=== PATIENT | male | born 1980 | race Caucasian/White ===

== ENCOUNTER 2016-12-18 01:12 | Emergency (ER) | payer OTHER ==
[~2016-12-18] VITALS: Ht 177.8 cm; Wt 82.3 kg
[~2016-12-18 01:12] MED LIST: PROP60CA2 PO
[2016-12-18 01:18] VITALS: BP 131/94; PULSE 111; RESP 16; O2SAT 100
--- NOTE | 2016-12-18 02:38 | ED.REPORT ---
HPI-Overdose/Alcohol Toxicity Date of Service Dec 18, 2016 ED Provider: Saeed Das MD A 36 year old male with a history of PTSD and bipolar presents to the ED via EMS complaining of anxiety and feeling strange onset earlier after patient took THC pill. Associated symptoms include chest pain, pain around right eye, and tensing up of legs with accompanying pain described as shooting. The patient wants to sleep it off. He reports recently cutting back on his bipolar related oxycarbazepine by half a pill on his own initiative because he thought he did not need it. Nursing Notes Stated Complaint: ANXIETY Chief Complaint: Substance Abuse Nursing Notes Reviewed: Yes Allergies: Coded Allergies: No Known Allergies (Unverified Allergy, Unknown, 05/07/14) Scheduled Propranolol ER (Propranolol ER) 60 Mg Cap.sa.24h 20 MG PO DAILY General Time Seen by Provider: 02:07 Chief Complaint Other (anxiety) Hx Obtained From: Patient, EMS Arrived By: Ambulance Onset Occurred: 1 - 4 hours ago Symptom Duration: Since onset Severity: Current: Moderate Severity: Maximum: Moderate Recent Healthcare: No recent doctor visit Similar Sx Previous: No Past Medical History Past Medical History Hx of esophageal spasm Bipolar oxcarbazepine PTSD Reports: GERD, Hypertension Past Surgical History none reported. Family History Father had heart attack in his 40's Smoking History Never Smoker Social History Patient is who fought in [place]. Alcohol Use: Denies alcohol use Drug Use: THC (Has been using THC more than bipolar medication.) Ambulatory Status Independent Review of Systems Review of Systems Note: Pain around right eye. Cardiovascular: Reports: Chest pain Musculoskeletal: Reports: Extremity pain (tension and pain in legs) Psychiatric: Reports: Anxiety Complete sys rev & neg: except as marked. Physical Exam Initial Vital Signs Vital Signs (First) Date Time Temp Pulse Resp B/P Pulse Ox O2 Delivery O2 Flow Rate FiO2 12/18/16 01:18 36.6 111 16 131/94 100 Room Air Initial VS: Reviewed, Vital signs abnormal General/Constitutional: Awake, Alert, Cooperative Distress / Hydration: Positive: Distress moderate Appearance / Presentation: Positive: Pale Patient is disheveled Respiratory / Chest: Atraumatic, Breath sounds NL, Breath sounds = bilat, No respiratory distress, No rales, No rhonchi, No wheezing Cardiovascular: Heart rate NL, Regular rhythm, Heart sounds NL, No gallop, No murmurs, No rubs Abdomen: No guarding, No rebound Neurologic: Oriented X3, Speech NL Abnormal Mood/Affect: Positive: Flat affect Head / Eyes: Atraumatic, Normocephalic, PERRL, EOMI Skin: Color NL, Warm Patient is initially diaphoretic. Upper Extremity / MS: No swelling, No edema Lower Extremity / Pelvis / MS: No swelling, No edema Interpretation & Diagnostics Interpretation & Diagnostics: Urine Dipstick positive for Marijuana. Lab Results Interpretation Result Diagram: 12/18/16 0730 12/18/16 0730 Test 12/18/16 04:15 12/18/16 07:30 Hold Urine Received (Received) White Blood Count 8.0th/mm3 (3.8-10.1) Red Blood Count 5.86mil/mm3 (4.40-5.80) Hemoglobin 16.1g/dL (13.8-17.2) Hematocrit 47.7% (41.0-50.0) Mean Corpuscular Volume 81.4fL (81-100) Mean Corpuscular Hemoglobin 27.5pg (27.0-35.0) Mean Corpuscular Hemoglobin Concent 33.8% (32.0-37.0) Red Cell Distribution Width 14.3% (12.3-15.4) Platelet Count 186bil/L (150-400) Neutrophils (%) (Auto) 77.9% (40-74) Lymphocytes (%) (Auto) 15.5% (14-46) Monocytes (%) (Auto) 5.2% (4-12) Eosinophils (%) (Auto) 1.1% (0-5) Basophils (%) (Auto) 0.2% (0-3) Sodium Level 142mEq/L (134-144) Potassium Level 4.6mEq/L (3.5-5.2) Chloride Level 103mEq/L (97-108) Carbon Dioxide Level 22mmol/L (18-29) Blood Urea Nitrogen 9mg/dL (6-20) Creatinine 1.06mg/dL (0.76-1.27) Estimat Glomerular Filtration Rate 85mL/min (>59) Glucose Level 121mg/dL (60-99) Calcium Level 10.0mg/dL (8.5-10.1) Total Bilirubin 0.3mg/dL (0.0-1.2) Aspartate Amino Transf (AST/SGOT) 34U/L (0-50) Alanine Aminotransferase (ALT/SGPT) 29U/L (0-44) Alkaline Phosphatase 100U/L (25-150) Total Protein 7.8g/dL (6.4-8.4) Albumin 4.8g/dL (3.4-5.0) Thyroid Stimulating Hormone (TSH) 1.080uIU/mL (0.450-4.500) Hold Meier Top Tube Received (Received) ECG Interpretation ECG Interpretation: Rate is 109. Sinus tachycardia. Time: 01:30 Interpreted by: ED physician Re-Eval/Medical Decision Med Decision/Clinical Course 36-year-old male who has a history of PTSD associated with service. He has been reducing his prescription medications and increasing his marijuana use. He presents with an exacerbation of PTSD and appears quite withdrawn and somewhat high on marijuana. He was not treated specifically but allowed to rest in a safe environment and metabolize the drug. His care is being turned over at change of shift to Dr. White. Family has ongoing concerns with his progression and would like him evaluated by the FOREIGN EXCHANGE CLERK. Source of Hx: Old records, EMS Re-Evaluation/Progress : Time of Eval: 06:43 Re-Evaluation/Progress Note: Rechecked patient who is much better. He is walking around the room. Counseled Regarding: Diagnosis, Need for follow-up, When/why to return to ED Discharge & Departure Shift Change Sign-Out Patient Care Transferred: Yes Discussed Complaint(s): Yes Laboratory Evaluation: Back, reviewed by me Impression: Primary Impression: PTSD (post-traumatic stress disorder) Referrals: [facility]ACH[facility] (PCP) Care Transferred to: Dr. White Care Transferred at: 06:00 Ramiro Attestation Portions of this note were transcribed by Masoud Chung. I, Dr. Das personally performed the history, physical exam and medical decision-making; I reviewed and confirmed the accuracy of the information in the transcribed note. Signed by: Ramiro Velez, 12/18/2016 and 0732. copies to: Saeed Hooper MD Dec 18, 2016 02:38 Masoud Chung Dec 18, 2016 02:39
[2016-12-18 04:57] VITALS: BP 128/89; PULSE 99; RESP 17; O2SAT 100
[2016-12-18 08:11] LABS: BASOPHILS % (AUTO) 0.2 % (0-3); EOSINOPHILS % (AUTO) 1.1 % (0-5); MONOCYTES % (AUTO) 5.2 % (4-12); Mean Corpuscular Hemoglobin 27.5 pg (27.0-35.0); Mean Corpuscular Volume 81.4 fL (81-100); NEUTROPHILS % (AUTO) 77.9 % (40-74); Platelet Count 186 bil/L (150-400)
--- NOTE | 2016-12-18 10:57 | PCM.EDPN ---
ED Note Date of Service Dec 18, 2016 I assumed care of this patient from Dr. Das at approximately 6 AM. He is calm and cooperative when I examined him just now. I have reviewed the documentation as well. general scrap worker has seen him and provide him additional outpatient resources and Medicaid application. The patient would like to go home now. Assessment: PTSD exacerbation and acute situational disturbance. Plan: Discharged home with outpatient follow-up as arranged by social work. Ga White MD Dec 18, 2016 10:56
[2016-12-18 11:05] VITALS: BP 118/65; PULSE 78; O2SAT 98
== END 2016-12-18 11:06 | disposition home or self-care (01) ==
LOC: SED 01:12
DX: F43.10 Post-traumatic stress disorder, unspecified (principal); F12.20 Cannabis dependence, uncomplicated; K21.9 Gastro-esophageal reflux disease without esophagitis; I10 Essential (primary) hypertension; F31.9 Bipolar disorder, unspecified